=== PATIENT | male | born 1960 | race Caucasian/White ===

== ENCOUNTER 2020-08-18 08:35 | Day surgery (SDC) | payer OTHER | END 2020-08-18 15:20 | disposition home or self-care (01) | LOC: AMB-ENDOS 08:35 | PROVIDERS: ATTEND Surgery | DX: D12.5 Benign neoplasm of sigmoid colon (principal); Z20.822 Contact with and (suspected) exposure to COVID-19; K64.8 Other hemorrhoids ==

== ENCOUNTER 2020-10-12 09:00 | Inpatient (IN) | payer OTHER ==
[~2020-10-12] VITALS: Ht 160 cm; Wt 61.7 kg
[2020-10-12] MEDS ORDERED: PROTONIX20 MG PO (10:55)
[2020-10-12] MEDS ORDERED: ADULT LOW DOSE81 M1 PO (10:55)
[2020-10-12] MEDS ORDERED: NORVASC2.5 M1 PO (10:55)
[2020-10-12] MEDS ORDERED: PECID PO (10:56)
[2020-10-12] MEDS ORDERED: LIPITOR20 MG PO (11:02)
[2020-10-15] MEDS ORDERED: PEPCID40 MG PO (09:22)
[2020-10-20] MEDS ORDERED: HYOSCYAMINE0.125 M1 SL (07:48)
[2020-10-20] MEDS ORDERED: Neurin-Sl Tablet Sl SL (07:49)
[2020-10-20] MEDS ORDERED: PYRIDOXINE HCL100 MG PO (07:49)
[2020-10-20] MEDS ORDERED: INTEGRA F CAPS1 EACH PO (07:49)
[2020-10-20] MEDS ORDERED: PEPCID40 MG PO (07:49)
[2020-10-20] MEDS ORDERED: ULTRACET PO (07:50)
== END 2020-10-20 11:34 | disposition home or self-care (01) | DRG 330 ==
LOC: O/R 10-15 08:33 → SURH 10-15 09:00 → SURG 10-15 17:17
PROVIDERS: ADMIT Surgery; ATTEND Surgery
PROC: 0DTP4ZZ Resection of Rectum, Percutaneous Endoscopic Approach (ICD-10-PCS; 2020-10-15)
PROC: 0DBN4ZZ Excision of Sigmoid Colon, Percutaneous Endoscopic Approach (ICD-10-PCS; principal; 2020-10-15 09:45)
PROC: 0DJD8ZZ Inspection of Lower Intestinal Tract, Via Natural or Artificial Opening Endoscopic (ICD-10-PCS; 2020-10-16)
DX: K57.20 Diverticulitis of large intestine with perforation and abscess without bleeding (principal); K91.840 Postprocedural hemorrhage of a digestive system organ or structure following a digestive system procedure; K62.5 Hemorrhage of anus and rectum; R19.4 Change in bowel habit; I11.9 Hypertensive heart disease without heart failure; E78.5 Hyperlipidemia, unspecified; E83.52 Hypercalcemia

== ENCOUNTER → 2023-10-08 | Emergency (ER) | payer OTHER ==
[~2023-10-08] VITALS: Ht 157.5 cm; Wt 64.9 kg
[~2023-10-08] MED LIST: ADULT LOW DOSE81 M1 PO; CIALIS20 MG PO; CRESTOR10 MG PO; HYOSCYAMINE0.125 M1 SL; INTEGRA F CAPS1 EACH PO; KETOROLAC TROMETHAMINE 30 MG VIAL IM STA; LIPITOR20 MG PO; NORVASC2.5 M1 PO; Neurin-Sl Tablet Sl SL; PECID PO; PEPCID40 MG PO; PROTONIX20 MG PO; PYRIDOXINE HCL100 MG PO; TAMS0.4C PO; TRAZODONE HCL150 MG; ULTRACET PO
[2023-10-08 13:53] LABS: HEMATOCRIT 48.4 % (39.0-48.0); HEMOGLOBIN 16.3 g/dL (13-16.00); MEAN CORPUSCULAR HEMOGLOBIN 29.6 pg (27.00-32.0); MEAN CORPUSCULAR HGB CONC 33.7 g/dl (32.0-36.0); PLATELET COUNT 261 K/uL (150-450); RED CELL DISTRIBUTION WIDTH 14.7 % (11.5-14.5)
[2023-10-08 14:13] LABS: CALCIUM 9.6 mg/dL (8.5-10.1); CREATININE SERUM 0.87 mg/dL (0.70-1.30); GFR 88.06; POTASSIUM 4.98 mEq/L (3.5-5.1)
[2023-10-08 14:32] LABS: URINE APPEARANCE Clear; URINE BILIRRUBIN Negative (NEGATIVE); URINE BLOOD Negative; URINE COLOR Yellow; URINE GLUCOSE Negative (NEGATIVE); URINE LEUKOCYTE Negative; URINE NITRATE Negative; URINE PROTEIN Negative (NEGATIVE); URINE UROBILINOGEN 0.2 E.U./dl
[2023-10-08 14:36] LABS: URINE RBC 28.7 uL (0.0-20.8)
[2023-10-08 14:37] LABS: URINE BACTERIA 1.2 uL (0.0-1933); URINE EPITHELIAL CELLS 0.3 uL (0.0-38.8)
== END | disposition home or self-care (01) ==
LOC: ER 11:44
PROVIDERS: General Practice
DX: K62.89 Other specified diseases of anus and rectum (principal); Z88.8 Allergy status to other drugs, medicaments and biological substances; K22.70 Barrett's esophagus without dysplasia; I10 Essential (primary) hypertension; K57.30 Diverticulosis of large intestine without perforation or abscess without bleeding